=== PATIENT | female | born 1955 | race Caucasian/White ===

== ENCOUNTER 2019-10-03 20:04 | Emergency (ER) | payer SELFPAY ==
[~2019-10-03] VITALS: Ht 152.4 cm; Wt 81.2 kg
[2019-10-03 20:13] VITALS: BP 140/73
--- NOTE | 2019-10-03 20:30 | NUR ---
PT AMBULATED TO BED
--- NOTE | 2019-10-03 20:30 | NUR ---
PATIENT PRESENTS TO ED WITH ABDOMINAL PAIN WITH N/V/D X4 DAYS. [id number] HX- DM NKA SKIN IS PINK/WARM/DRY; AAOX4 WITH EVEN AND STEADY GAIT; LUNGS CLEAR BL; HR EVEN AND REGULAR; PT DENIES ANY FEVER, CP, SOB, OR COUGH AT THIS TIME; PATIENT STATES PAIN OF 3/10 AT THIS TIME; VSS; PATIENT POSITIONED FOR COMFORT; HOB ELEVATED; BEDRAILS UP X2; BED DOWN. ER MD MADE AWARE OF PT STATUS.
[2019-10-03] MEDS ORDERED: diphenhydrAMINE 50 MG/ML VIAL ONE (20:58)
[2019-10-03 21:20] LABS: APPEARANCE,URINE CLEAR (CLEAR); BILIRUBIN,URINE NEGATIVE (NEGATIVE); BLOOD, URINE NEGATIVE (NEGATIVE); LEUKOCYTE ESTERASE ,URINE TRACE (NEGATIVE); NITRITE, URINE NEGATIVE (NEGATIVE); UGLUCOSE NEGATIVE (NEGATIVE)
[2019-10-03 21:21] LABS: COLOR,URINE STRAW (YELLOW)
[2019-10-03 21:30] LABS: RBC,URINE 0 /HPF (0-5); WBC,URINE 0-5 /HPF (0-5)
[2019-10-03 22:06] LABS: BASOPHILS % (AUTO) 0.1 % (0.0-2.0); EOSINOPHILS # (AUTO) 0.1 K/uL (0-0.4); EOSINOPHILS % (AUTO) 1.5 % (0.0-4.0); HEMATOCRIT 41.5 % (36-48); HEMOGLOBIN 14.1 g/dL (12.0-16.0); LYMPHOCYTES # (AUTO) 2.5 K/uL (2.5-16.5); LYMPHOCYTES % (AUTO) 42.9 % (20.5-51.1); MEAN CORPUSCULAR HEMOGLOBIN 29 pg (27-31); MEAN CORPUSCULAR HGB CONC 34 g/dL (33-37); MONOCYTES # (AUTO) 0.4 K/uL (0.8-1.0); MONOCYTES % (AUTO) 7.6 % (1.7-9.3); NEUTROPHILS # (AUTO) 2.8 K/uL (1.8-7.7); NEUTROPHILS % (AUTO) 47.9 % (42.2-75.2); PLATELET COUNT (AUTO) 246 K/uL (140-450); RED BLOOD CELL COUNT(AUTO) 4.82 MIL/uL (4.20-5.40); RED CELL DISTRIBUTION WIDTH 13.1 % (11.6-13.7); WHITE BLOOD COUNT (AUTO) 5.8 K/uL (4.8-10.8)
[2019-10-03 22:21] LABS: ANION GAP 10.1 (8-16); CARBON DIOXIDE 30.8 mmol/L (21-32); CREATININE 0.7 mg/dL (0.6-1.3); POTASSIUM 3.9 mmol/L (3.5-5.1)
[2019-10-03 22:26] LABS: ALBUMIN 3.2 g/dL (3.4-5.0); TOTAL BILIRUBIN 0.3 mg/dL (0.0-1.0)
[2019-10-03] MEDS ORDERED: IBUPROFEN 600 MG TAB PO ONE (22:50)
[2019-10-03 23:25] VITALS: BP 131/69
--- NOTE | 2019-10-03 23:25 | NUR ---
Patient discharged with v/s stable. Written and verbal after care instructions given and explained. Patient alert, oriented and verbalized understanding of instructions. Ambulatory with steady gait. All questions addressed prior to discharge. ID band removed. Patient advised to follow up with PMD. Rx of MIRALAX, IBUPROFEN given. Patient educated on indication of medication including possible reaction and side effects. Opportunity to ask questions provided and answered.
== END 2019-10-03 23:25 | disposition home or self-care (01) ==
LOC: MED 20:04
DX: R10.9 Unspecified abdominal pain (principal); K59.00 Constipation, unspecified; R11.0 Nausea
CPT/HCPCS: 36415; 74176; 80053; 81001; 83690; 85025; 99284; J1200

== ENCOUNTER 2022-07-30 17:16 | Emergency (ER) | payer MEDICAID ==
[~2022-07-30] VITALS: Ht 152.4 cm; Wt 70.3 kg
[2022-07-30 17:39] VITALS: BP 133/71
--- NOTE | 2022-07-30 18:30 | NUR ---
67/F PRESENTS TO ED WITH C/O RIGHT SHOULDER AND ARM PAIN S/P FALL TODAY. STATES SHE WAS SEEN AT URGENT CARE AND REFERRED TO ED FOR XRAYS. DENIES HEAD OR NECK INJURY, PATIENT PRESENTED WITH ARM IN SLING UPON ARRIVAL TO ED.
[2022-07-30] MEDS ORDERED: KETOROLAC 30 MG/ML VIAL IM ONE (18:35)
[2022-07-30] MEDS ORDERED: IBUP-2213 PO (19:50)
[2022-07-30] MEDS ORDERED: KETOROLAC 30 MG/ML VIAL ONE (20:00)
[2022-07-30 20:21] VITALS: BP 142/83
--- NOTE | 2022-07-30 20:21 | NUR ---
Patient discharged with v/s stable. Written and verbal after care instructions ABOUT SHOULDER PAIN given and explained. Patient alert, oriented and verbalized understanding of instructions. Ambulatory with steady gait. All questions addressed prior to discharge. ID band removed. Patient advised to follow up with PMD. Rx of IBUPROFEN given. Patient educated on indication of medication including possible reaction and side effects. Opportunity to ask questions provided and answered.
== END 2022-07-30 20:21 | disposition home or self-care (01) ==
LOC: MED 17:16
DX: S40.011A Contusion of right shoulder, initial encounter (principal); E11.9 Type 2 diabetes mellitus without complications; Z79.899 Other long term (current) drug therapy; W01.0XXA Fall on same level from slipping, tripping and stumbling without subsequent striking against object, initial encounter; Y93.01 Activity, walking, marching and hiking; Y92.89 Other specified places as the place of occurrence of the external cause; Y99.8 Other external cause status
CPT/HCPCS: 73030; 96372; 99283; J1885